=== PATIENT | female | born 1955 | race African-American/Black ===

== ENCOUNTER 2018-06-24 10:14 | Emergency (ER) | payer SELFPAY | END 2018-06-24 11:20 | disposition home or self-care (01) | LOC: ERS 10:14 | DX: M53.3 Sacrococcygeal disorders, not elsewhere classified (principal); M62.830 Muscle spasm of back; I10 Essential (primary) hypertension; E78.00 Pure hypercholesterolemia, unspecified; F17.210 Nicotine dependence, cigarettes, uncomplicated; Z71.6 Tobacco abuse counseling | CPT/HCPCS: 99406 ==

== ENCOUNTER 2018-06-26 10:30 | Observation (INO) | payer SELFPAY ==
[2018-06-26] MEDS ORDERED: Metoprolol Tartrate 25 MG TAB ONE (11:42)
[2018-06-26] MEDS ORDERED: Losartan 25 MG TAB PO SCH (12:00)
[2018-06-26 12:07] LABS: #Eosinphils 0.1 thou/uL (0.0-0.7); #Lymphocytes 1.6 thou/uL (1.20-3.40); #Monocytes 0.3 thou/uL (0.11-0.59); #Neutrophils 2.4 thou/uL (1.40-6.50); %Basophils 0.8 % (0.0-1.0); %Eosinophils 1.8 % (0.0-10.0); %Monocytes 7.7 % (0.0-10.0); %Neutrophils 53.7 % (42.0-75.0); Mean Corpuscular HGB CONC 32.1 g/dL (32.0-36.0); Mean Corpuscular Hemoglobin 31.2 pg (27.0-31.0); Mean Platelet Volume 7.2 fL (7.4-10.4); Platelet Count 274 thou/uL (130-400); RBC Distribution Width 12.9 % (11.5-14.5); Red Blood Cell (RBC) Count 5.44 mill/uL (4.20-5.40); White Blood Cell (WBC) Count 4.4 thou/uL (4.8-10.8)
--- NOTE | 2018-06-26 12:13 | RAD ---
UPRIGHT PORTABLE CHEST 1 VIEW: Date: 06/26/18 HISTORY: 62-year-old female with history of dyspnea. Patient forgot to take her blood pressure medicine and is now hypertensive and dizzy. FINDINGS: Heart size is normal. The lungs are clear. No confluent pneumonia, overt edema, or pleural effusion. IMPRESSION: No acute intrathoracic disease. Atherosclerosis of aorta. POS: [facility]
[2018-06-26 12:30] LABS: ALT (SGPT) 19 U/L (8-55); AST (SGOT) 15 U/L (5-34); Albumin 4.2 g/dL (3.5-5.0); Alkaline Phosphatase 91 U/L (40-150); Anion Gap 12 mmol/L (10-20); BUN (Urea Nitrogen) 13 mg/dL (9.8-20.1); Bilirubin, Total 0.3 mg/dL (0.2-1.2); Calc. Creatinine Clearance 0 mL/min (70-130); Calcium 9.7 mg/dL (7.8-10.44); Carbon Dioxide 23 mmol/L (22-29); Chloride 106 mmol/L (98-107); Estimated GFR-MDRD 68; Globulin 4.1 g/dL (2.4-3.5); Glucose 104 mg/dL (70-105); Potassium 4.3 mmol/L (3.5-5.1); Protein, Total 8.3 g/dL (6.0-8.3); Sodium 137 mmol/L (136-145)
[2018-06-26 12:33] LABS: CKMB 1.8 ng/mL (0-6.6); Troponin I 0.046 ng/mL (< 0.028)
[2018-06-26] MEDS ORDERED: hydrALAZINE 20 MG/ML VIAL ONE (13:27)
[2018-06-26] MEDS ORDERED: Acetaminophen 500 MG TAB ONE (14:33)
[2018-06-26] MEDS ORDERED: Nitroglycerin 2% Ointment 1 INCH/1 GM Packet ONE (14:33)
[2018-06-26 15:55] LABS: Troponin I 0.062 ng/mL (< 0.028)
[2018-06-26 16:11] VITALS: BMI 26.7
[2018-06-26 19:02] LABS: Troponin I 0.048 ng/mL (< 0.028)
[2018-06-26] MEDS ORDERED: cloNIDine 0.1 MG TAB PO PRN (20:36)
[2018-06-26] MEDS ORDERED: Acetaminophen 500 MG TAB PO PRN (20:36)
[2018-06-26] MEDS ORDERED: hydrALAZINE 20 MG/ML VIAL SLOW IVP PRN (20:36)
[2018-06-26] MEDS ORDERED: Ondansetron ODT 4 MG TAB PO PRN (20:36)
[2018-06-26] MEDS ORDERED: Ondansetron PF 4 MG/2 ML Vial IVP PRN (20:36)
[2018-06-26] MEDS ORDERED: Pravastatin Sodium 40 MG TAB PO SCH (21:00)
[2018-06-26] MEDS: Famotidine 20 MG TAB PO SCH (22:44)
--- NOTE | 2018-06-27 02:31 | HP ---
DATE OF ADMISSION: 06/26/2018 PRIMARY CARE PROVIDER: Dr. Jhon Burns. CHIEF COMPLAINT: Dizziness. HISTORY OF PRESENT ILLNESS: This is a 62-year-old -Maldivian female who presents to [facility] after experiencing a sudden onset of dizziness and headache, which began appr oximately 2 hours prior to evaluation in the emergency room. 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 The patient states she did not take her regular blood pressure medications on the morning of this evaluation to include amlo dipine, losartan, and metoprolol succinate. The patient states her head was pounding around her eyes with associated dizziness and feeling ill. The patient denied any specific chest pain, unilateral w eakness, difficulty with speech, or facial droop. The patient states she has been taking antihyperte nsive medications for many years, but occasionally is noncompliant and forgets to take her medicines. In the emergency room, the patient underwent general evaluation with initial blood pressure of 231/ 101. The patient received transdermal nitroglycerin, aspirin 324 mg, hydralazine 10 mg IV x1 dose as well as losartan and metoprolol. The patient's blood pressure improved with these interventions and she was transferred to the observation unit. PAST MEDICAL HISTORY: 1. Hypertension, questionable compliance with outpatient medication. 2. Hyperlipidemia. 3. Tobacco abuse. PAST SURGICAL HISTORY: Status post cholecystectomy. CURRENT MEDICATIONS: 1. Amlodipine 10 mg 1 tab p.o. daily. 2. Losartan 100 mg p.o. daily. 3. Toprol-XL 50 mg p.o. daily. 4. Pravachol 40 mg p.o. at bedtime. ALLERGIES: No known drug allergies. FAMILY HISTORY: Multiple family members with hypertension. SOCIAL HISTORY: Resides in [place], [place]. 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 Smokes up to half a pack of cigarettes daily. No alcohol or illicit drug use. REVIEW OF SYSTEMS: The following complete review of systems was negative, unless otherwise mentioned in the HPI or below: Constitutional: Weight loss or gain, ability to conduct usual activities. Sk in: Rash, itching. Eyes: Double vision, pain. ENT/Mouth: Nose bleeding, neck stiffness, pain, te nderness. Cardiovascular: Palpitations, dyspnea on exertion, orthopnea. Respiratory: Shortness of breath, wheezing, cough, hemoptysis, fever or night sweats. Gastrointestinal: Poor appetite, abdom inal pain, heartburn, nausea, vomiting, constipation, or diarrhea. Genitourinary: Urgency, frequenc y, dysuria, nocturia. Musculoskeletal: Pain, swelling. Neurologic/Psychiatric: Anxiety, depressio n. Allergy/Immunologic: Skin rash, bleeding tendency. PHYSICAL EXAMINATION: VITAL SIGNS: Currently, blood pressure 185/91, pulse 58, respiratory rate 20, temperature 98.5 degre es Fahrenheit, O2 saturation 96% on room air. GENERAL APPEARANCE: This is a 62-year-old -Maldivian female, alert and oriented x3, pleasant, conversant, in no acute distress. HEENT: Pupils are equal, round, and reactive to light and accommodation. Extraocular muscles are in tact. No scleral icterus, no conjunctival injection. Nares patent. OP is clear. Teeth in fair rep air. NECK: Supple. No cervical adenopathy, no thyromegaly, no carotid bruits, no JVD appreciated. Cervi marina spine with full active and passive range of motion. No meningeal signs appreciated. CHEST: Lungs are clear to auscultation bilaterally. CARDIOVASCULAR: S1, S2 without noted murmur, rub, or gallop. ABDOMEN: Rounded, soft, nontender, nondistended. Bowel sounds are positive in all four quadrants. There is no hepatosplenomegaly, no abdominal bruits, no rebound or guarding appreciated. EXTREMITIES: Warm and dry with fair turgor. No clubbing, cyanosis, or asymmetric edema appreciated. Pulses palpable distally at the dorsalis pedis, posterior tibial, and popliteal arteries bilaterall y. Capillary refill less than 2 seconds. NEUROLOGIC: Cranial nerves II through XII are grossly intact. No focal or lateralizing signs apprec iated. PERTINENT LABORATORY AND X-RAY FINDINGS: Complete metabolic profile within normal limits. Troponin I ranged between 0.046-0.062. CBC within normal limits. Portable chest x-ray dated 06/26/2018, show ed no acute cardiopulmonary process. EKG dated 06/26/2018 by my interpretation, shows a sinus bradyc ardia with heart rates in the 50s to 60s. Normal R-wave progression noted in precordial leads. Norm al axis. No acute ST-T wave changes appreciated. ASSESSMENT AND PLAN: 1. Hypertensive urgency. The patient will be continued on observation status on the telemetry unit. Resume home antihypertensive regimen to include amlodipine 10 mg daily, losartan 100 mg daily, and Toprol-XL 50 mg daily. We will provide hydralazine and clonidine p.r.n. systolic over 170. 2. Demand ischemia of the myocardium. Secondarily to #1. No current evidence to suggest acute liliana nary syndrome. See #1 for management. 3. Tobacco abuse. We will offer smoking cessation resources prior to discharge. 4. Hyperlipidemia. Check fasting lipid profile in the a.m. 5. Prophylaxis. Sequential compression devices while in bed. Pepcid 20 mg p.o. b.i.d. 6. Smoking cessation resources. 7. Code status is FULL. Surrogate medical decision maker is patient's spouse.
[2018-06-27 05:04] LABS: Anion Gap 12 mmol/L (10-20); BUN (Urea Nitrogen) 11 mg/dL (9.8-20.1); Calc. Creatinine Clearance 80 mL/min (70-130); Calcium 9.4 mg/dL (7.8-10.44); Carbon Dioxide 23 mmol/L (22-29); Cardiac Risk 5.6 (Less than 4.5); Chloride 108 mmol/L (98-107); Cholesterol 218 mg/dl (< 200 Desired); Estimated GFR-MDRD 79; Glucose 99 mg/dL (70-105); HDL Cholesterol 39 mg/dL (>60 Neg Risk); LDL Cholesterol, Calculated 161 mg/dL; Magnesium 2.3 mg/dL (1.6-2.6); Potassium 3.7 mmol/L (3.5-5.1); Sodium 139 mmol/L (136-145); Triglycerides 92 mg/dL (Less than 150)
[2018-06-27 07:58] VITALS: TEMP 98.3
[2018-06-27] MEDS: Famotidine 20 MG TAB PO SCH (08:17)
[2018-06-27] MEDS ORDERED: Losartan 25 MG TAB PO SCH (09:00)
[2018-06-27] MEDS ORDERED: Amlodipine 10 MG TAB PO SCH (09:00)
[2018-06-27] MEDS ORDERED: hydrALAZINE 25 MG TAB PO SCH (11:15)
[2018-06-27 11:39] VITALS: BP 167/81
--- NOTE | 2018-06-27 18:40 | DIS ---
DATE OF ADMISSION: 06/26/2018 DATE OF DISCHARGE: 06/27/2018 DISCHARGE DIAGNOSES: 1. Hypertensive urgency, improved. 2. Hypertension, labile. 3. Demand ischemia of the myocardium secondary to #1. 4. Tobacco abuse. 5. Hyperlipidemia. CONSULTATIONS: None. PERTINENT LAB AND X-RAY FINDINGS: Creatinine ranged between 0.88-1.0. Estimated GFR ranged between 68-79, troponin I ranged between 0.046-0.062. Total cholesterol 218, triglycerides 92, HDL 39, LDL 1 61. TSH 2.31. Portable chest x-ray dated 06/26/2018 showed no acute cardiopulmonary process. HOSPITAL COURSE: The patient was observed on the telemetry unit after initially presenting with dizz iness with associated hypertensive urgency with initial systolics in the 230 range. The patient rece ived topical nitroglycerin as well as IV hydralazine and was resumed on a regular outpatient regimen to include losartan, metoprolol, and amlodipine. The patient was noted with improved blood pressure trend; however, remained labile. The patient received additional hydralazine 25 mg daily, and will c ontinue on an outpatient course to include 25 mg t.i.d. The patient may need additional titration of her antihypertensive regimen on an ongoing basis after discharge. Overall, the patient remained cli nically stable during the hospital course with telemetry monitoring showing a sinus mechanism without acute arrhythmia or dysrhythmia. The patient tolerated oral intake and was voiding appropriately. I have examined the patient at the time of discharge and discussed followup instructions, at which po int the patient verbalized understanding and agreement. The patient overall clinically stable and re horacio for discharge on 06/27/2018. DISCHARGE MEDICATIONS: 1. Amlodipine 10 mg 1 tab p.o. daily. 2. Losartan 100 mg p.o. daily. 3. Toprol-XL 50 mg p.o. daily. 4. Pravachol 40 mg p.o. at bedtime. 5. Hydralazine 25 mg p.o. t.i.d. FOLLOWUP: The patient will follow up with her primary care provider, Dr. John Burns within 7 day s of discharge. CONDITION ON DISCHARGE: Stable. ACTIVITY: Ad minnie. DIET: Heart healthy. CODE STATUS: FULL. DISPOSITION: Home on 06/27/2018.
--- NOTE | 2018-06-29 21:20 | EKG ---
Test Reason : Blood Pressure : / mmHG Vent. Rate : 057 BPM Atrial Rate : 057 BPM P-R Int : 158 ms QRS Dur : 082 ms QT Int : 408 ms P-R-T Axes : 053 049 066 degrees QTc Int : 397 ms Sinus bradycardia Possible Left atrial enlargement Nonspecific T wave abnormality Abnormal ECG Confirmed by AARON MASTERS DO ([id number]), editorial assistant DIANDRA BELLO ([id number] on 06/29/2018 9:20:11 PM Referred By: Confirmed By:AARON MASTERS DO
== END 2018-06-27 12:20 | disposition home or self-care (01) ==
LOC: ERS 10:30 → 2SW 14:40
PROVIDERS: ADMIT Family Medicine; ATTEND Family Medicine
DX: I16.0 Hypertensive urgency (principal); I24.8 Other forms of acute ischemic heart disease; I10 Essential (primary) hypertension; E78.5 Hyperlipidemia, unspecified; F17.210 Nicotine dependence, cigarettes, uncomplicated; Z79.899 Other long term (current) drug therapy; Z91.14 Patient's other noncompliance with medication regimen
CPT/HCPCS: 36415; 71045; 80048; 80053; 80061; 82553; 83735; 84443; 84484; 85025; 93005; 94760; 96374; G0378; J0360

== ENCOUNTER 2019-02-28 17:03 | Emergency (ER) | payer SELFPAY ==
[2019-02-28] MEDS ORDERED: Adacel (T-DAP) 0.5 ML SYRINGE ONE (17:39)
[2019-02-28] MEDS ORDERED: Bacitracin Zinc 1 Packet ONE (17:39)
[2019-02-28] MEDS ORDERED: Ketorolac Tromethamine 30 MG/ML VIAL ONE (17:39)
== END 2019-02-28 17:51 | disposition home or self-care (01) ==
LOC: ERS 17:03
DX: S71.151A Open bite, right thigh, initial encounter (principal); I10 Essential (primary) hypertension; E78.00 Pure hypercholesterolemia, unspecified; F17.210 Nicotine dependence, cigarettes, uncomplicated; W55.01XA Bitten by cat, initial encounter
CPT/HCPCS: 90471; 90715; 96372; J1885

== ENCOUNTER 2019-12-26 12:33 | Emergency (ER) | payer SELFPAY | END 2019-12-26 14:30 | disposition home or self-care (01) | LOC: ERS 12:33 | DX: I10 Essential (primary) hypertension (principal); Z76.0 Encounter for issue of repeat prescription; E78.00 Pure hypercholesterolemia, unspecified; E11.9 Type 2 diabetes mellitus without complications; F17.210 Nicotine dependence, cigarettes, uncomplicated; Z79.899 Other long term (current) drug therapy; Z79.84 Long term (current) use of oral hypoglycemic drugs | CPT/HCPCS: 93005 ==